=== PATIENT | female | born 1995 | race Caucasian/White ===

== ENCOUNTER 2017-02-26 17:30 | Emergency (ER) | payer OTHER ==
[~2017-02-26] VITALS: Wt 66.5 kg
[2017-02-26] MEDS ORDERED: CYCL5TAB PO (17:49)
[2017-02-26] MEDS ORDERED: IBUP-1542 PO (17:49)
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
== END 2017-02-26 17:48 | disposition home or self-care (01) ==
LOC: FTE 17:30 → E/R 17:48
DX: S29.012A Strain of muscle and tendon of back wall of thorax, initial encounter (principal); V49.50XA Passenger injured in collision with unspecified motor vehicles in traffic accident, initial encounter
CPT/HCPCS: 99283